=== PATIENT | female | born 1950 | race Caucasian/White ===

== ENCOUNTER → 2016-10-27 | Day surgery (SDC) | payer MEDICARE, OTHER ==
[~2016-10-27] MED LIST: AMOXICILLIN500 MG PO; CITALOPRAM HBR20 MG PO; CLARITHROMYCIN500 MG PO; LANSOPRAZOLE30 MG PO; LIORESAL TAB 1010 MG PO; NEURONTIN 300300 MG PO; NORCO 7.5-3251 EACH PO; OMEPRAZOLE20 M1 PO; ZANTAC 150 MG150 MG PO
== END | disposition home or self-care (01) ==
LOC: OR 06:22
PROVIDERS: Surgery
PROC: 0FT44ZZ Resection of Gallbladder, Percutaneous Endoscopic Approach (ICD-10-PCS; principal; 2016-10-27 07:30)
DX: K80.10 Calculus of gallbladder with chronic cholecystitis without obstruction (principal); M19.90 Unspecified osteoarthritis, unspecified site; K21.9 Gastro-esophageal reflux disease without esophagitis; F17.210 Nicotine dependence, cigarettes, uncomplicated; Z79.899 Other long term (current) drug therapy; Z90.710 Acquired absence of both cervix and uterus
CPT/HCPCS: 36415; 80048; J0295; J1200; J2250; J2405; J2710; J2765; J3010; J7030; J7050; J7120; Q9962

== ENCOUNTER → 2017-01-28 | Outpatient (CLI) | payer MEDICARE, OTHER | LOC: RAD 15:30 | DX: M54.5 Low back pain (principal); M47.896 Other spondylosis, lumbar region | CPT/HCPCS: 72110 ==